=== PATIENT | male | born 1970 | race Caucasian/White ===

== ENCOUNTER 2023-04-28 19:09 | Emergency (ER) | payer MEDICARE ==
[2023-04-28] MEDS ORDERED: ONDANSETRON ODT 4 MG TAB PO STA (19:26)
[2023-04-28 19:29] VITALS: TEMP 98.4
[2023-04-28 19:30] LABS: Glucose,Whole Blood 115 mg/dL (70-110)
[2023-04-28 20:16] LABS: Basophils % (A) 0 %; Eosinophils # (A) 0.2 k/uL (0-0.7); Eosinophils % (A) 1 %; HCT 49.3 % (39.0-53.0); HGB 17.7 gm/dL (13.0-17.5); Lymphocytes # (A) 2.1 k/uL (1.0-4.8); Lymphocytes % (A) 14 %; MCH 33.5 pg (25.0-35.0); MCHC 35.9 g/dL (31.0-37.0); MCV 93.5 fL (80.0-100.0); Mean Platelet Volume 6.9; Monocytes # (A) 0.5 k/uL (0-1.0); Monocytes % (A) 4 %; Neutrophils # (A) 11.8 k/uL (1.3-7.7); Neutrophils % (A) 80 %; Platelet Count 270 k/uL (150-450); RBC 5.27 m/uL (4.30-5.90); RDW 12.1 % (11.5-15.5); WBC 14.8 k/uL (3.8-10.6)
[2023-04-28 20:29] LABS: ALT 28 U/L (4-49); African American GFR (CKD) >90 (>60 ml/min/1.73 sqM); Amylase 56 U/L (30-110); Anion Gap 12 mmol/L; Blood Urea Nitrogen 11 mg/dL (9-20); Calcium 9.7 mg/dL (8.4-10.2); Carbon Dioxide 20 mmol/L (22-30); Chloride 104 mmol/L (98-107); Glucose 116 mg/dL (74-99); Lipase 41 U/L (23-300); Non-African American GFR(CKD) >90 (>60 ml/min/1.73 sqM); Sodium 136 mmol/L (137-145); Total Bilirubin 1.2 mg/dL (0.2-1.3)
[2023-04-28 20:35] LABS: Potassium 4.2 mmol/L (3.5-5.1)
[2023-04-28 20:36] LABS: Alkaline Phosphatase 89 U/L (38-126)
[2023-04-28 20:37] LABS: AST 34 U/L (17-59); Albumin 4.4 g/dL (3.5-5.0); Total Protein 7.1 g/dL (6.3-8.2)
--- NOTE | 2023-04-28 20:45 | XR ---
EXAMINATION TYPE: XR KUB DATE OF EXAM: 04/28/2023 8:41 PM CLINICAL INDICATION:Male, 53 years old with history of abdominal pain. COMPARISON: None. TECHNIQUE: One radiographic view of the abdomen was obtained. FINDINGS: The bowel gas pattern is nonspecific without dilated loops of small or large bowel. There i s no evidence for organomegaly or pneumoperitoneum. The osseous structures are intact. No abnormal calcifications are present. Fecal material and gas are demonstrated throughout the colon and rectum. Multilevel degenerative changes of the lumbar spine, most pronounced at L4-L5. IMPRESSION: Nonspecific bowel gas pattern without radiographic evidence for acute process.
[2023-04-28] MEDS ORDERED: SODIUM CHLORIDE 0.9% 1,000 ML IV ONE (21:37)
[2023-04-28] MEDS ORDERED: MORPHINE SULFATE 2 MG/ML SYRINGE IVP STA (21:37)
[2023-04-28] MEDS ORDERED: KETOROLAC 15 MG/ML 1 ML VIAL IVP STA (21:37)
[2023-04-28] MEDS ORDERED: ONDANSETRON 4 MG/2 ML VIAL IVP STA (21:37)
--- NOTE | 2023-04-28 21:50 | ED ---
General Adult HPI - General Chief complaint: Nausea/Vomiting/Diarrhea Stated complaint: dizziness/vomiting Time Seen by Provider: 04/28/23 21:30 Source: patient, RN notes reviewed, old records reviewed Mode of arrival: ambulatory Limitations: no limitations - History of Present Illness Initial comments: 53-year-old male presenting with nausea vomiting, generalized abdominal pain and cramping. Symptoms began abruptly several hours prior to arrival. Patient states he ate a salad that he thinks may have been spoiled. No fever. Pain is generalized and has only been present associated with the vomiting. - Related Data Allergies Allergy/AdvReac Type Severity Reaction Status Date / Time sulfamethoxazole Allergy Rash/Hives Verified 04/28/23 19:23 [From Bactrim] trimethoprim [From Bactrim] Allergy Rash/Hives Verified 04/28/23 19:23 Review of Systems ROS Statement: Those systems with pertinent positive or pertinent negative responses have been documented in the HPI. ROS Other: All systems not noted in ROS Statement are negative. Past Medical History Past Medical History: Dementia, Sleep Apnea/CPAP/BIPAP Additional Past Medical History / Comment(s): fatty liver History of Any Multi-Drug Resistant Organisms: None Reported Past Surgical History: Orthopedic Surgery Additional Past Surgical History / Comment(s): back surgery Past Psychological History: Bipolar Smoking Status: Never smoker Past Alcohol Use History: Occasional Past Drug Use History: None Reported General Exam Limitations: no limitations General appearance: alert, in no apparent distress Head exam: Present: atraumatic, normocephalic Eye exam: Present: normal appearance, PERRL ENT exam: Present: mucous membranes dry Neck exam: Present: normal inspection. Absent: tenderness, meningismus Respiratory exam: Present: normal lung sounds bilaterally. Absent: respiratory distress, wheezes Cardiovascular Exam: Present: regular rate, normal rhythm GI/Abdominal exam: Present: soft, tenderness (Minimal generalized tenderness). Absent: distended Extremities exam: Present: normal inspection Neurological exam: Present: alert Psychiatric exam: Present: normal affect, normal mood Skin exam: Present: warm Course Vital Signs 04/28/23 04/28/23 04/28/23 19:23 22:00 23:00 Temperature 98.4 F 98.4 F Pulse Rate 60 58 L Respiratory 28 H 20 Rate Blood Pressure 130/78 O2 Sat by Pulse 99 99 Oximetry - Reevaluation(s) Reevaluation #1: 04/29/23 00:20 Patient feeling better and eager for discharge Medical Decision Making - Medical Decision Making Was pt. sent in by a medical professional or institution (SARAH Galarza, TILE CONDUIT LAYER, urgent care, hospital, or jail...) When possible be specific @ -[No] Did you speak to anyone other than the patient for history (EMS, parent, family, police, friend...)? What history was obtained from this source @ -[No] Did you review nursing and triage notes (agree or disagree)? Why? @ -[I reviewed and agree with nursing and triage notes] Were old charts reviewed (outside hosp., previous admission, EMS record, old EKG, old radiological studies, urgent care reports/EKG's, jail records)? Report findings @ -[No old charts were reviewed] Differential Diagnosis (chest pain, altered mental status, abdominal pain women, abdominal pain men, vaginal bleeding, weakness, fever, dyspnea, syncope, headach e, dizziness, GI bleed, back pain, seizure, CVA, palpatations, mental health, musculoskeletal)? @ Gastroenteritis, appendicitis, cholecystitis EKG interpreted by me (3pts min.). @ -[As above] X-rays interpreted by me (1pt min.). @ -[None done] CT interpreted by me (1pt min.). @ -[None done] U/S interpreted by me (1pt. min.). @ -[None done] What testing was considered but not performed or refused? (CT, X-rays, U/S, labs)? Why? @ -[None] What meds were considered but not given or refused? Why? @ -[None] Did you discuss the management of the patient with other professionals (professionals i.e. SARAH Galarza, TILE CONDUIT LAYER, lab, RT, psych nurse, dialysis social worker, healthcare corporate account director, teacher, strike operations officer, pillowcase turner)? Give summary @ -[No] Was smoking cessation discussed for >3mins.? @ -[No] Was critical care preformed (if so, how long)? @ -[No] Were there social determinants of health that impacted care today? How? (Homelessness, low income, unemployed, alcoholism, drug addiction, transportation, low edu. Level, literacy, decrease access to med. care, [facility], rehab)? @ -[No] Was there de-escalation of care discussed even if they declined (Discuss DNR or withdrawal of care, Hospice)? DNR status @ -[No] What co-morbidities impacted this encounter? (DM, HTN, Smoking, COPD, CAD, Cancer, CVA, ARF, Chemo, Hep., AIDS, mental health diagnosis, sleep apnea, morbid obesity)? @ Dementia Was patient admitted / discharged? Hospital course, mention meds given and route, prescriptions, significant lab abnormalities, going to OR and other pertinent info. @ -53-year-old male with acute nausea and vomiting, generalized abdominal cramping. No significant focal tenderness. Patient afebrile. Symptoms control led in the emergency department. He has a leukocytosis which may be reactive. He also has some hematuria without specific flank pain. Ultimately patient's given symptomatically treatment and is feeling better. He wishes to be discharged and attempt to rest at home. He is given strict return parameters. Undiagnosed new problem with uncertain prognosis? @ -[No] Drug Therapy requiring intensive monitoring for toxicity (Heparin, Nitro, Ins ulin, Cardizem)? @ -[No] Were any procedures done? @ -[No] Diagnosis/symptom? @ Acute nausea and vomiting Acute, or Chronic, or Acute on Chronic? @ -Acute Uncomplicated (without systemic symptoms) or Complicated (systemic symptoms)? @ -[default] Side effects of treatment? @ -[No] Exacerbation, Progression, or Severe Exacerbation? @ -[No] Poses a threat to life or bodily function? How? (Chest pain, [place], [place], pneumonia, PE, COPD, DKA, ARF, appy, cholecystitis, CVA, Diverticulitis, Homicidal, Suicidal, threat to staff... and all critical care pts) @ -Low risk at this time - Lab Data Result diagrams: 04/28/23 19:57 04/28/23 19:57 Lab Results 04/28/23 04/28/23 04/28/23 Range/Units 19:28 19:57 19:57 WBC 14.8 H (3.8-10.6) k/uL RBC 5.27 (4.30-5.90) m/uL Hgb 17.7 H (13.0-17.5) gm/dL Hct 49.3 (39.0-53.0) % MCV 93.5 (80.0-100.0) fL MCH 33.5 (25.0-35.0) pg MCHC 35.9 (31.0-37.0) g/dL RDW 12.1 (11.5-15.5) % Plt Count 270 (150-450) k/uL MPV 6.9 Neutrophils % 80 % Lymphocytes % 14 % Monocytes % 4 % Eosinophils % 1 % Basophils % 0 % Neutrophils # 11.8 H (1.3-7.7) k/uL Lymphocytes # 2.1 (1.0-4.8) k/uL Monocytes # 0.5 (0-1.0) k/uL Eosinophils # 0.2 (0-0.7) k/uL Basophils # 0.0 (0-0.2) k/uL Sodium 136 L (137-145) mmol/L Potassium 4.2 (3.5-5.1) mmol/L Chloride 104 (98-107) mmol/L Carbon Dioxide 20 L (22-30) mmol/L Anion Gap 12 mmol/L BUN 11 (9-20) mg/dL Creatinine 0.66 (0.66-1.25) mg/dL Est GFR (CKD-EPI)AfAm >90 (>60 ml/min/1.73 sqM) Est GFR (CKD-EPI)NonAf >90 (>60 ml/min/1.73 sqM) Glucose 116 H (74-99) mg/dL POC Glucose (mg/dL) 115 H (70-110) mg/dL POC Glu Research And Development Researcher ID Willing, Bren Calcium 9.7 (8.4-10.2) mg/dL Total Bilirubin 1.2 (0.2-1.3) mg/dL AST 34 (17-59) U/L ALT 28 (4-49) U/L Alkaline Phosphatase 89 (38-126) U/L Total Protein 7.1 (6.3-8.2) g/dL Albumin 4.4 (3.5-5.0) g/dL Amylase 56 (30-110) U/L Lipase 41 (23-300) U/L Urine Color Urine Appearance (Clear) Urine pH (5.0-8.0) Ur Specific Roff (1.001-1.035) Urine Protein (Negative) Urine Glucose (UA) (Negative) Urine Ketones (Negative) Urine Blood (Negative) Urine Nitrite (Negative) Urine Bilirubin (Negative) Urine Urobilinogen (<2.0) mg/dL Ur Leukocyte Esterase (Negative) Urine RBC (0-5) /hpf Urine WBC (0-5) /hpf Ur Squamous Epith Cells (0-4) /hpf Urine Mucus (None) /hpf Urine Yeast (Budding) (None) /hpf Influenza Type A (PCR) (Not Detectd) Influenza Type B (PCR) (Not Detectd) RSV (PCR) (Not Detectd) SARS-CoV-2 (PCR) (Not Detectd) 04/28/23 04/28/23 Range/Units 22:07 22:30 WBC (3.8-10.6) k/uL RBC (4.30-5.90) m/uL Hgb (13.0-17.5) gm/dL Hct (39.0-53.0) % MCV (80.0-100.0) fL MCH (25.0-35.0) pg MCHC (31.0-37.0) g/dL RDW (11.5-15.5) % Plt Count (150-450) k/uL MPV Neutrophils % % Lymphocytes % % Monocytes % % Eosinophils % % Basophils % % Neutrophils # (1.3-7.7) k/uL Lymphocytes # (1.0-4.8) k/uL Monocytes # (0-1.0) k/uL Eosinophils # (0-0.7) k/uL Basophils # (0-0.2) k/uL Sodium (137-145) mmol/L Potassium (3.5-5.1) mmol/L Chloride (98-107) mmol/L Carbon Dioxide (22-30) mmol/L Anion Gap mmol/L BUN (9-20) mg/dL Creatinine (0.66-1.25) mg/dL Est GFR (CKD-EPI)AfAm (>60 ml/min/1.73 sqM) Est GFR (CKD-EPI)NonAf (>60 ml/min/1.73 sqM) Glucose (74-99) mg/dL POC Glucose (mg/dL) (70-110) mg/dL POC Glu Research And Development Researcher ID Calcium (8.4-10.2) mg/dL Total Bilirubin (0.2-1.3) mg/dL AST (17-59) U/L ALT (4-49) U/L Alkaline Phosphatase (38-126) U/L Total Protein (6.3-8.2) g/dL Albumin (3.5-5.0) g/dL Amylase (30-110) U/L Lipase (23-300) U/L Urine Color Yellow Urine Appearance Clear (Clear) Urine pH 6.5 (5.0-8.0) Ur Specific Roff 1.025 (1.001-1.035) Urine Protein 1+ H (Negative) Urine Glucose (UA) Negative (Negative) Urine Ketones 3+ H (Negative) Urine Blood Moderate (Negative) Urine Nitrite Negative (Negative) Urine Bilirubin Negative (Negative) Urine Urobilinogen 2.0 (<2.0) mg/dL Ur Leukocyte Esterase Negative (Negative) Urine RBC 28 H (0-5) /hpf Urine WBC 1 (0-5) /hpf Ur Squamous Epith Cells 3 (0-4) /hpf Urine Mucus Moderate H (None) /hpf Urine Yeast (Budding) Rare H (None) /hpf Influenza Type A (PCR) Not Detected (Not Detectd) Influenza Type B (PCR) Not Detected (Not Detectd) RSV (PCR) Not Detected (Not Detectd) SARS-CoV-2 (PCR) Not Detected (Not Detectd) Disposition Clinical Impression: Dehydration, Nausea & vomiting Disposition: HOME SELF-CARE Condition: Fair Instructions (If sedation given, give patient instructions): Acute Nausea and Vomiting (ED) Is patient prescribed a controlled substance at d/c from ED?: No Referrals: Sarahi Zarco DO [Primary Care Provider] - 1-2 days Time of Disposition: 00:20
[2023-04-28 23:08] VITALS: RESP 20
[2023-04-28 23:18] LABS: Appearance,Urine Clear (Clear); Budding Yeast,Urine Rare /hpf; Color,Urine Yellow; Glucose,Urine (UA) Negative (Negative); Ketones,Urine 3+ (Negative); Mucus,Urine Moderate /hpf; PH, Urine 6.5 (5.0-8.0); Protein,Urine 1+ (Negative); RBC,Urine 28 /hpf (0-5); Specific Gravity,Urine 1.025 (1.001-1.035); Squamous Epithelial Cell,Urine 3 /hpf (0-4); WBC,Urine 1 /hpf (0-5)
[2023-04-28 23:19] LABS: Bilirubin,Urine Negative (Negative); Blood,Urine Moderate (Negative); Leukocyte Esterase,Urine Negative (Negative); Nitrite,Urine Negative (Negative)
[2023-04-29] MEDS ORDERED: ONDANSETRON 4 MG ODT STARTER PACK 2 TAB BTL PO STA (00:24)
[2023-04-29 00:56] VITALS: BP 127/68; PULSE 55
== END 2023-04-29 00:34 | disposition home or self-care (01) ==
LOC: EC 19:09
DX: E86.0 Dehydration (principal); R11.2 Nausea with vomiting, unspecified; Z88.2 Allergy status to sulfonamides; Z86.59 Personal history of other mental and behavioral disorders; Z20.822 Contact with and (suspected) exposure to COVID-19
CPT/HCPCS: 36415; 80053; 82150; 83690; 85025; 81001; 87636; 74018; 99284; 96374; 96375 ×2; 96361; J2405; J2270; J1885; S0119

== ENCOUNTER 2023-05-25 18:01 | Emergency (ER) | payer MEDICARE ==
--- NOTE | 2023-05-25 18:10 | ED ---
General Adult HPI <Aldo Hernandez - Last Filed: 05/25/23 18:14> - General Source: patient Mode of arrival: ambulatory Limitations: no limitations <Benedict Montero - Last Filed: 05/25/23 22:35> - General Stated complaint: Fall/leg pain - History of Present Illness Initial comments: 53-year-old male presenting to the ED with a chief complaint of fall. Patient states that he was walking out of his bathroom right outside of his kitchen when he tripped on the bathroom rug causing him to fall forward. Patient states during the fall, hit the right side of his hip onto a countertop. States that the countertop had a cast iron jacobson on it. States he then continued to fall forward and landed on the Tylenol. Unsure of head injury at this time however d enies headache. States that as she continued falling he cast iron jacobson then went and fell on top of him. Now notes pain of his lower back. Bilateral hips, knees, and right foot (Aldo Hernandez) 53-year-old male presenting with chief complaint of lower back pain that radiates down the right leg. Patient had a fall earlier today. No loss of bowel or bladder control or saddle paresthesia. No abdominal pain, chest pain, difficulty breathing. No fevers or chills. No dysuria, hematuria, nausea, vomiting. Symptoms are worse with ambulation. Admits to numbness and tingling radiating down the right leg. (Benedict Montero) - Related Data Previous Rx's Medication Instructions Recorded Cyclobenzaprine [Flexeril] 10 mg PO TID PRN #15 tab 05/25/23 methylPREDNISolone Dose Pack 4 mg PO DIRECTED #1 packet 05/25/23 [Medrol Dose Pack] Allergies Allergy/AdvReac Type Severity Reaction Status Date / Time sulfamethoxazole Allergy Rash/Hives Verified 04/28/23 19:23 [From Bactrim] trimethoprim [From Bactrim] Allergy Rash/Hives Verified 04/28/23 19:23 Review of Systems ROS Other: All systems not noted in ROS Statement are negative. <Aldo Hernandez - Last Filed: 05/25/23 18:14> ROS Other: All systems not noted in ROS Statement are negative. <Benedict Montero - Last Filed: 05/25/23 22:35> ROS Statement: Those systems with pertinent positive or pertinent negative responses have been documented in the HPI. Past Medical History Past Medical History: Dementia, Sleep Apnea/CPAP/BIPAP Additional Past Medical History / Comment(s): fatty liver History of Any Multi-Drug Resistant Organisms: None Reported Past Surgical History: Orthopedic Surgery Additional Past Surgical History / Comment(s): back surgery Past Psychological History: Bipolar Smoking Status: Never smoker Past Alcohol Use History: Occasional Past Drug Use History: None Reported <Aldo Hernandez - Last Filed: 05/25/23 18:14> General Exam Eye exam: Present: normal appearance Neck exam: Present: normal inspection Extremities exam: Present: normal inspection Back exam: Present: normal inspection <Aldo Hernandez - Last Filed: 05/25/23 18:14> Limitations: no limitations General appearance: alert, in no apparent distress Head exam: Present: atraumatic, normocephalic, normal inspection Eye exam: Present: normal appearance, EOMI Neck exam: Present: normal inspection, full ROM Respiratory exam: Absent: respiratory distress Back exam: Present: normal inspection, paraspinal tenderness. Absent: vertebral tenderness Neurological exam: Present: alert, oriented X3 Psychiatric exam: Present: normal affect, normal mood Skin exam: Present: warm, dry, intact, normal color. Absent: rash <Benedict Montero - Last Filed: 05/25/23 22:35> Course Vital Signs 05/25/23 18:27 Temperature 98.4 F Pulse Rate 86 Respiratory 16 Rate Blood Pressure 121/80 O2 Sat by Pulse 98 Oximetry Medical Decision Making <Aldo Hernandez - Last Filed: 05/25/23 18:14> <Benedict Montero - Last Filed: 05/25/23 22:35> - Medical Decision Making Quicknote portion performed. Signed Aldo Hernandez PA-C (Aldo Hernandez) Was pt. sent in by a medical professional or institution (SARAH Galarza, TYING IN MACHINE OPERATOR, urgent care, hospital, or retirement...) When possible be specific @ -No Did you speak to anyone other than the patient for history (EMS, parent, family, police, friend...)? What history was obtained from this source @ -No Did you review nursing and triage notes (agree or disagree)? Why? @ -I reviewed and agree with nursing and triage notes Were old charts reviewed (outside hosp., previous admission, EMS record, old EKG, old radiological studies, urgent care reports/EKG's, retirement records)? Report findings @ -No old charts were reviewed Differential Diagnosis (chest pain, altered mental status, abdominal pain women, abdominal pain men, vaginal bleeding, weakness, fever, dyspnea, syncope, headache, dizziness, GI bleed, back pain, seizure, CVA, palpatations, mental health, musculoskeletal)? @ - MDM Differential Back Pain: Strain, zoster, cauda equina syndrome, epidural abscess, vertebral osteomyelitis, discitis, fracture, subluxation, disc herniation, DJD, spinal stenosis, dissection, AAA, pancreatitis, peptic ulcer disease, pyelonephritis, kidney stone this is not meant to be an all-inclusive list. EKG interpreted by me (3pts min.). @ -As above X-rays interpreted by me (1pt min.). @ -Negative x-rays of the tibia/fibula, pelvis, lumbar spine, bilateral knees, foot, and femur. CT interpreted by me (1pt min.). @ -None done U/S interpreted by me (1pt. min.). @ -None done What testing was considered but not performed or refused? (CT, X-rays, U/S, labs)? Why? @ -None What meds were considered but not given or refused? Why? @ -None Did you discuss the management of the patient with other professionals (professionals i.e. , PA, TYING IN MACHINE OPERATOR, lab, RT, psych nurse, social and political studies professor, research development director, teacher, probation officer, rifle case repairer)? Give summary @ -No Was smoking cessation discussed for >3mins.? @ -No Was critical care preformed (if so, how long)? @ -No Were there social determinants of health that impacted care today? How? (Homelessness, low income, unemployed, alcoholism, drug addiction, transportation, low edu. Level, literacy, decrease access to med. care, longterm, rehab)? @ -No Was there de-escalation of care discussed even if they declined (Discuss DNR or withdrawal of care, Hospice)? DNR status @ -No What co-morbidities impacted this encounter? (DM, HTN, Smoking, COPD, CAD, Cancer, CVA, ARF, Chemo, Hep., AIDS, mental health diagnosis, sleep apnea, morbid obesity)? @ -None Was patient admitted / discharged? Hospital course, mention meds given and route, prescriptions, significant lab abnormalities, going to OR and other pertinent info. @ -53-year-old male presenting with chief complaint of lower back pain with radiation down the right leg. Patient had a fall today. No red flag symptoms. Paraspinal muscle tenderness to the right side on palpation, no midline/vertebral tenderness. Negative x-rays. Patient is given Toradol, Decadron, Norflex, lidocaine patch. Reassessment he reports significant improvement in pain. Educated on supportive management. Follow-up with PCP. Report back to ER with any new or worsening symptoms. Discussed return parameters and answered all questions. Patient conveyed verbal understanding and agreed to the plan. I discussed this case in detail with my attending Dr. Avelar Undiagnosed new problem with uncertain prognosis? @ -No Drug Therapy requiring intensive monitoring for toxicity (Heparin, Nitro, Insulin, Cardizem)? @ -No Were any procedures done? @ -No Diagnosis/symptom? @ -Mechanical back pain Acute, or Chronic, or Acute on Chronic? @ -Acute Uncomplicated (without systemic symptoms) or Complicated (systemic symptoms)? @ -uncomplicated Side effects of treatment? @ -No Exacerbation, Progression, or Severe Exacerbation? @ -No Poses a threat to life or bodily function? How? (Chest pain, [place], [place], pneumonia, PE, COPD, DKA, ARF, appy, cholecystitis, CVA, Diverticulitis, Homicidal, Suicidal, threat to staff... and all critical care pts) @ -No (Benedict Montero) Disposition <Aldo Hernandez - Last Filed: 05/25/23 18:14> Is patient prescribed a controlled substance at d/c from ED?: No Time of Disposition: 22:08 <Benedict Montero - Last Filed: 05/25/23 22:35> Clinical Impression: Strain of lumbar region Disposition: HOME SELF-CARE Condition: Good Instructions (If sedation given, give patient instructions): Acute Low Back Pain (ED) Additional Instructions: Follow-up with PCP. Report back to ER with any new or worsening symptoms. Prescriptions: Cyclobenzaprine [Flexeril] 10 mg PO TID PRN #15 tab PRN Reason: Spasms methylPREDNISolone Dose Pack [Medrol Dose Pack] 4 mg PO DIRECTED #1 packet Referrals: Sarahi Zarco DO [Primary Care Provider] - 1-2 days
[2023-05-25 18:40] VITALS: RESP 16
--- NOTE | 2023-05-25 20:05 | XR ---
EXAMINATION TYPE: XR lumbar spine 2 or 3V, XR tibia fibula 2 views RT, XR foot complete 3 views RT, X R knee complete 3 views bilateral, XR femur 2 views bilateral, XR pelvis AP view DATE OF EXAM: 05/25/2023 Comparison: None Clinical History: 53-year-old male pain after fall today Findings: Lumbar spine: Slight dextroconvex scoliosis of the lumbar spine. 5 lumbar type vertebral bodies. Mild to moderate m ultilevel degenerative disc disease and endplate spondylosis. Facet arthropathy mid to lower lumbar s pine. Degenerative grade 1 anterolisthesis L4-L5. Otherwise, vertebral body heights are preserved. Pelvis: There is degenerative subarticular sclerosis at both SI joints. Mild degenerative spurring of both hi ps. No acute fracture, subluxation, or dislocation is seen. Bilateral femurs: No acute fracture seen. Bilateral knees: There is hinged left total knee arthroplasty. No hardware loosening or prosthetic fracture seen. Smal l knee joint effusions on both sides. Some anterior soft tissue swelling on both sides. Mild tricompa rtmental degenerative spurring right knee. No acute fracture, subluxation, or dislocation seen. Right tibia/fibula and right foot: Mild soft tissue swelling throughout the leg. Corticated ossific density below the lateral malleolus suggesting sequela of remote injury. Some focal osteoarthritic change at the medial talar dome. The f oot shows an os peroneum. There is a bunion formation as well as mild degenerative change of the firs t MTP joint. Posterior calcaneal spur with mild ossification along the Achilles tendon insertion sugg esting chronic injury. No acute fracture, subluxation, or dislocation. IMPRESSION: 1. Lumbar spine: Slight dextroconvexed scoliosis. Mild to moderate multilevel degenerative disc disea se and facet arthropathy. Degenerative grade 1 anterolisthesis L4-L5. No vertebral compression collap se. 2. Pelvis: Mild bilateral hip OA. Mild bilateral SI joint OA. No acute osseous abnormality seen. 3. Femurs: No acute femoral shaft fracture. 4. Knees: Uncomplicated hinged left total knee arthroplasty on the left. There is mild anterior soft tissue swelling and a nonspecific small knee joint effusions on both sides. No acute osseous abnormal ity seen. 5. Right tibia/fibula: Mild soft tissue swelling throughout the leg. Sequela of old injury at the lat eral malleolus and chronic insertional Achilles tendinopathy. Some focal osteophytic change at the me dial tibiotalar joint. No acute osseous abnormality seen. 6. Right foot: Bunion formation with mild first MTP joint OA. No acute osseous abnormality seen.
[2023-05-25] MEDS ORDERED: ORPHENADRINE 30 MG/ML 2 ML VIAL IM STA (20:57)
[2023-05-25] MEDS ORDERED: DEXAMETHASONE SOD PHOSPHATE 10 MG/ML 1 ML VIAL IM STA (20:57)
[2023-05-25] MEDS ORDERED: KETOROLAC 15 MG/ML 1 ML VIAL IM STA (20:57)
[2023-05-25] MEDS ORDERED: LIDOCAINE 5% PATCH TOPICAL SCH (21:00)
[2023-05-26 02:53] VITALS: BP 130/82; PULSE 80; TEMP 98.3
== END 2023-05-25 22:21 | disposition home or self-care (01) ==
LOC: EC 18:01
DX: S39.012A Strain of muscle, fascia and tendon of lower back, initial encounter (principal); Z88.1 Allergy status to other antibiotic agents; Z88.2 Allergy status to sulfonamides; W01.198A Fall on same level from slipping, tripping and stumbling with subsequent striking against other object, initial encounter; Y93.01 Activity, walking, marching and hiking
CPT/HCPCS: 73562; 72100; 72170; 73552; 73590; 73630; 99283; 96372 ×3; J1100; J2360; J1885

== ENCOUNTER 2023-09-15 19:10 | Emergency (ER) | payer MEDICARE, OTHER ==
--- NOTE | 2023-09-15 19:36 | ED ---
Fall HPI - General Stated Complaint: Head injury, Fall Time Seen by Provider: 09/15/23 19:35 Source: patient, RN notes reviewed Mode of arrival: ambulatory Limitations: no limitations - History of Present Illness Initial Comments: Patient is a 53-year-old male presented to the ER with chief complaint of a fall. Patient states last night she was fixing a rug underneath a chair and accidentally lost oyster washer of the rug and fell backwards hitting the back of her head. She denies loss of consciousness or blood thinner use. Denies any nausea, vomiting post incident. She does report this morning she fell after tripping on her feet her right shoulder and hip. Denies limited range of motion or paresthesias. Denies any head injury. She also reports that earlier today she started to experience a headache. Patient also reports she would like to be tested for STDs as she has been "very active" lately. Denies any visual disturbances, cough, congestion, fevers, chills, chest pain, shortness of breath, abdominal pain, constipation/diarrhea or peripheral edema. - Related Data Previous Rx's Medication Instructions Recorded Cyclobenzaprine [Flexeril] 10 mg PO TID PRN #15 tab 05/25/23 methylPREDNISolone Dose Pack 4 mg PO DIRECTED #1 packet 05/25/23 [Medrol Dose Pack] Cyclobenzaprine [Flexeril] 10 mg PO TID PRN #15 tab 09/15/23 Allergies Allergy/AdvReac Type Severity Reaction Status Date / Time sulfamethoxazole Allergy Rash/Hives Verified 09/15/23 19:39 [From Bactrim] trimethoprim [From Bactrim] Allergy Rash/Hives Verified 09/15/23 19:39 Review of Systems ROS Statement: Those systems with pertinent positive or pertinent negative responses have been documented in the HPI. ROS Other: All systems not noted in ROS Statement are negative. Past Medical History Past Medical History: Dementia, Sleep Apnea/CPAP/BIPAP Additional Past Medical History / Comment(s): fatty liver History of Any Multi-Drug Resistant Organisms: None Reported Past Surgical History: Orthopedic Surgery Additional Past Surgical History / Comment(s): back surgery Past Psychological History: Bipolar Smoking Status: Never smoker Past Alcohol Use History: Occasional Past Drug Use History: None Reported General Exam - General Exam Comments Initial Comments: Visual Physical Exam Vital signs reviewed General: Well-appearing, nontoxic, no acute distress. Head: Normocephalic, atraumatic Eyes: PERRLA, EOMI ENT: Airway patent Chest: Nonlabored breathing Skin: No visual rash, normal skin tone Neuro: Alert and oriented 3 Musculoskeletal: No gross abnormalities General appearance: alert, in no apparent distress Head exam: Present: atraumatic, normocephalic, normal inspection Eye exam: Present: normal appearance, PERRL, EOMI. Absent: scleral icterus, conjunctival injection, periorbital swelling Pupils: Present: normal accommodation ENT exam: Present: normal exam, normal oropharynx, mucous membranes moist, TM's normal bilaterally Neck exam: Present: normal inspection. Absent: meningismus, lymphadenopathy Respiratory exam: Present: normal lung sounds bilaterally. Absent: respiratory distress, wheezes, rales, rhonchi, stridor Cardiovascular Exam: Present: regular rate, normal rhythm, normal heart sounds. Absent: systolic murmur, diastolic murmur, rubs, gallop, clicks GI/Abdominal exam: Present: soft, normal bowel sounds. Absent: distended, tenderness, guarding, rebound, rigid Extremities exam: Present: normal inspection, full ROM, normal capillary refill. Absent: tenderness, pedal edema, joint swelling, calf tenderness Back exam: Present: normal inspection Neurological exam: Present: alert, oriented X3, CN II-XII intact Psychiatric exam: Present: normal affect, normal mood Skin exam: Present: warm, dry, intact, normal color. Absent: rash Course Vital Signs 09/15/23 09/15/23 19:32 22:09 Temperature 98.2 F 98.6 F Pulse Rate 65 67 Respiratory 20 18 Rate Blood Pressure 135/82 136/84 O2 Sat by Pulse 96 98 Oximetry Medical Decision Making - Medical Decision Making I performed the quick note portion of this chart. Electronically signed by Delmis Cintron PA-C Was pt. sent in by a medical professional or institution (SARAH Galarza, ORTHOPAEDIC PHYSICIAN ASSISTANT, urgent care, hospital, or penitentiary...) When possible be specific @ -No Did you speak to anyone other than the patient for history (EMS, parent, family, police, friend...)? What history was obtained from this source @ -No Did you review nursing and triage notes (agree or disagree)? Why? @ -I reviewed and agree with nursing and triage notes Were old charts reviewed (outside hosp., previous admission, EMS record, old EKG, old radiological studies, urgent care reports/EKG's, penitentiary records)? Report findings @ -No old charts were reviewed Differential Diagnosis (chest pain, altered mental status, abdominal pain women, abdominal pain men, vaginal bleeding, weakness, fever, dyspnea, syncope, headache, dizziness, GI bleed, back pain, seizure, CVA, palpatations, mental health, musculoskeletal)? @ -Fracture, dislocation, contusion, hematoma, intracranial hemorrhage, concussion, abrasion, laceration this list does not like to be all-inclusive EKG interpreted by me (3pts min.). @ -None X-rays interpreted by me (1pt min.). @ -X rays of right shoulder, ribs w/ Ap chest, hip and knee interpreted by me negative for acute process. CT interpreted by me (1pt min.). @ -Ct brain/c-spine negative for acute intracranial process. U/S interpreted by me (1pt. min.). @ -None done What testing was considered but not performed or refused? (CT, X-rays, U/S, labs)? Why? @ -Urine STD testing was refused by patient. What meds were considered but not given or refused? Why? @ -Patient refused prophylactic STD treatment. Did you discuss the management of the patient with other professionals (professionals i.e. , PA, ORTHOPAEDIC PHYSICIAN ASSISTANT, lab, RT, psych nurse, social media strategist, transport conductor, t eacher, tactical deception plans officer, geriatric case manager)? Give summary @ -No Was smoking cessation discussed for >3mins.? @ -No Was critical care preformed (if so, how long)? @ -No Were there social determinants of health that impacted care today? How? (Homelessness, low income, unemployed, alcoholism, drug addiction, transportation, low edu. Level, literacy, decrease access to med. care, usp, rehab)? @ -No Was there de-escalation of care discussed even if they declined (Discuss DNR or withdrawal of care, Hospice)? DNR status @ -No What co-morbidities impacted this encounter? (DM, HTN, Smoking, COPD, CAD, Cancer, CVA, ARF, Chemo, Hep., AIDS, mental health diagnosis, sleep apnea, morbid obesity)? @ -None Was patient admitted / discharged? Hospital course, mention meds given and route, prescriptions, significant lab abnormalities, going to OR and other pertinent info. @ -Discharge. Patient is a 53-year-old male presented to ER with chief complaint of a fall. Patient originally seen by myself as a quick note. History and physical exam completed. Vitals stable. Patient in no signs of acute distress and non-toxic appearing. No acute neurological findings on exam. Bilateral upper and lower extremities neurovascular intact. Imaging completed in the ER negative for acute process. Results discussed with patient, all questions answered. I offered patient urine STD testing, patient refused. Patient states she would like full blood work testing and will follow-up with PCP. Patient refused prophylactic STD treatment. Patient received by mouth Flexeril in the ER. Patient also prescribed Flexeril as pain may be due to muscle spasm. Strict return parameters discussed. Patient will be discharged stable condition with follow-up to PCP. Patient expressed understanding and agreement with care plan. Case discussed with ED attending, Dr. Ortiz. Undiagnosed new problem with uncertain prognosis? @ -No Drug Therapy requiring intensive monitoring for toxicity (Heparin, Nitro, Insulin, Cardizem)? @ -No Were any procedures done? @ -No Diagnosis/symptom? @ -Muscle contusion/fall Acute, or Chronic, or Acute on Chronic? @ -Acute Uncomplicated (without systemic symptoms) or Complicated (systemic symptoms)? @ -Uncomplicated Side effects of treatment? @ -No Exacerbation, Progression, or Severe Exacerbation? @ -No Poses a threat to life or bodily function? How? (Chest pain, [place], [place], pneumonia, PE, COPD, DKA, ARF, appy, cholecystitis, CVA, Diverticulitis, Homicidal, Suicidal, threat to staff... and all critical care pts) @ -No - Radiology Data Radiology results: report reviewed, image reviewed Disposition Clinical Impression: Fall, Muscle contusion Disposition: HOME SELF-CARE Condition: Stable Instructions (If sedation given, give patient instructions): Fall Prevention (ED) Additional Instructions: Please follow-up with PCP. Return to the ER for any new or worsening symptoms. Prescriptions: Cyclobenzaprine [Flexeril] 10 mg PO TID PRN #15 tab PRN Reason: Muscle Spasm Is patient prescribed a controlled substance at d/c from ED?: No Referrals: Sarahi Zarco DO [Primary Care Provider] - 1-2 days Time of Disposition: 21:45
--- NOTE | 2023-09-15 20:34 | XR ---
EXAM: XR Right Ribs and AP Chest, 3 or More Views CLINICAL HISTORY: ITS.REASON XR Reason: pain s/p fall TECHNIQUE: Frontal and oblique views of the right ribs and frontal view of the chest. COMPARISON: None FINDINGS: Lungs: Unremarkable. No consolidation. Pleural space: Unremarkable. No pneumothorax. Heart: Unremarkable. No cardiomegaly. Mediastinum: Unremarkable. Normal mediastinal contour. Bones/joints: Unremarkable. No displaced rib fracture identified. IMPRESSION: No displaced rib fracture identified.
--- NOTE | 2023-09-15 20:36 | XR ---
EXAM: XR Right Shoulder Complete, 2 or More Views CLINICAL HISTORY: ITS.REASON XR Reason: pain s/p fall TECHNIQUE: Two or more views of the right shoulder. COMPARISON: None FINDINGS: Bones/joints: No displaced fracture or dislocation identified. Mild degenerative change of the right acromioclavicular joint. No bony lesion. Soft tissues: Normal. No radiopaque foreign body identified. IMPRESSION: No displaced fracture or dislocation identified.
--- NOTE | 2023-09-15 20:37 | XR ---
EXAM: XR Pelvis, 1 or 2 Views CLINICAL HISTORY: ITS.REASON XR Reason: pain s/p fall TECHNIQUE: Frontal view of the pelvis. COMPARISON: None FINDINGS: Bones/joints: No displaced fracture or dislocation identified. Mild degenerative changes of the hips. Degenerative changes of the visualized lower lumbar spine. No bony lesion. Soft tissues: Normal. No radiopaque foreign body identified. IMPRESSION: No displaced fracture or dislocation identified.
--- NOTE | 2023-09-15 20:42 | XR ---
EXAM: XR Right Knee, 3 Views CLINICAL HISTORY: ITS.REASON XR Reason: pain s/p fall TECHNIQUE: Three views of the right knee. COMPARISON: Bilateral knee radiographs on 05/25/2023 FINDINGS: Bones/joints: No displaced fracture or dislocation identified. Mild, tricompartmental degenerative changes of the right knee. Possible small knee joint effusion. No bony lesion. Soft tissues: Soft tissue swelling. No radiopaque foreign body identified. IMPRESSION: No displaced fracture or dislocation identified.
--- NOTE | 2023-09-15 21:05 | CT ---
EXAM: CT Head Without Intravenous Contrast CLINICAL HISTORY: ITS.REASON CT Reason: fall head injury TECHNIQUE: Axial computed tomography images of the head/brain without intravenous contrast. CTDI is 45.2 mGy and DLP is 1086 mGy-cm. This CT exam was performed using one or more of the following dose reduction techniques: automated exposure control, adjustment of the mA and/or kV according to patient size, and/or use of iterative reconstruction technique. COMPARISON: None FINDINGS: Brain: No acute infarct or hemorrhage. No extra-axial fluid collection. No mass effect or midline shift. Mild calcifications in the basal ganglia. Ventricles and sulci: Normal. No ventriculomegaly or intraventricular hemorrhage. Bones: Hyperostosis frontalis interna. No bony lesion or acute fracture. Subcutaneous tissues: Normal. Sinuses: Mild mucosal thickening in the maxillary sinuses. Mastoid air cells: Normal. Orbits: Grossly unremarkable. IMPRESSION: No acute intracranial abnormality. EXAM: CT Cervical Spine Without Intravenous Contrast CLINICAL HISTORY: ITS.REASON CT Reason: fall head injury TECHNIQUE: Axial computed tomography images of the cervical spine without intravenous contrast. CTDI is 17.1 mGy and DLP is 397.3 mGy-cm. This CT exam was performed using one or more of the following dose reduction techniques: automated exposure control, adjustment of the mA and/or kV according to patient size, and/or use of iterative reconstruction technique. COMPARISON: None FINDINGS: Bones: Ossifications in the nuchal ligament are likely related to remote trauma. No acute fracture or bony lesion. Disc spaces: Degenerative changes of the spine. Minimal retrolisthesis of C4 on C5. Soft tissues: Normal. Other: Atherosclerotic changes of the vasculature. Right-sided tonsilliths. IMPRESSION: No acute traumatic abnormality.
[2023-09-15] MEDS: CYCLOBENZAPRINE 10 MG TAB PO STA (21:56)
[2023-09-15 22:12] VITALS: BP 136/84; PULSE 67; RESP 18; TEMP 98.6
== END 2023-09-15 22:10 | disposition home or self-care (01) ==
LOC: EC 19:10
DX: S40.011A Contusion of right shoulder, initial encounter (principal); Z86.59 Personal history of other mental and behavioral disorders; Z88.2 Allergy status to sulfonamides; Z88.1 Allergy status to other antibiotic agents; W18.09XA Striking against other object with subsequent fall, initial encounter
CPT/HCPCS: 70450; 72125; 73502; 99284